=== PATIENT | female | born 1955 | race Asian ===

== ENCOUNTER 2019-04-25 09:19 | Inpatient (IN) | payer MEDICAID ==
[~2019-04-25] VITALS: Ht 152.4 cm; Wt 54.4 kg
[2019-04-25 10:23] LABS: BASOPHILS % 0.8 % (0.0-2.0); EOSINOPHILS % 3.8 % (0.0-5.0); HEMATOCRIT. 32.7 % (36.0-48.0); HEMOGLOBIN. 10.7 g/dL (12.0-16.0); LYMPHOCYTES % 8.6 % (20.0-50.0); MEAN CORPUSCULAR HEMOGLOBIN 31.6 pg (28.0-32.0); MEAN CORPUSCULAR VOLUME 96.2 fL (81.0-99.0); MEAN PLATELET VOLUME 9.1 fl (7.4-10.4); MONOCYTES % 4.4 % (2.0-8.0); NEUTROPHILS % 82.4 % (40.0-76.0); PLATELET 181 x1000/uL (130-400); RED CELL DISTRIBUTION WIDTH 15.6 % (11.6-14.6)
[2019-04-25 10:26] LABS: CHLORIDE 98 mEq/L (98-107)
[2019-04-25 10:27] LABS: PROTHROMBIN TIME 10.5 sec (9.6-11.0)
[2019-04-25] MEDS ORDERED: IPRATROPIUM/ALBUTEROL 0.5-3(2.5)MG/3ML NEB NEB PRN (15:00)
[2019-04-25] MEDS ORDERED: MAGNESIUM/ALUMINUM HYDROXIDE/SIMETHICONE 30ML UDC PO PRN (15:00)
[2019-04-25] MEDS ORDERED: CLONIDINE 0.1MG TABLET PO PRN (15:00)
[2019-04-25] MEDS ORDERED: NITROGLYCERIN 0.4MG TABLET SL SL PRN (15:00)
[2019-04-25] MEDS ORDERED: ENOXAPARIN 40MG/0.4ML SYR SUBCUT SCH (15:00)
[2019-04-25] MEDS ORDERED: ONDANSETRON HCL 4MG/2ML INJ IV PRN (15:00)
[2019-04-25] MEDS ORDERED: GUAIFENESIN 200MG/10ML SUGAR FREE UDC PO PRN (15:00)
[2019-04-25] MEDS ORDERED: DIPHENHYDRAMINE 50MG/ML VIAL IV PRN (15:00)
[2019-04-25] MEDS ORDERED: DOCUSATE SODIUM 100MG CAPSULE PO PRN (15:00)
[2019-04-25] MEDS ORDERED: DEXTROSE 50% WATER 50ML SYRINGE IV PRN (15:00)
[2019-04-25] MEDS ORDERED: LORAZEPAM 2MG/ML CPJ IV ONE (15:30)
[2019-04-25 15:55] LABS: T4 FREE 1.15 ng/dL (0.76-1.46)
[2019-04-25 16:04] LABS: FOLIC ACID (FOLATE) SERUM 9.5 ng/mL (>5.38)
[2019-04-25 18:16] VITALS: BP 148/64
[2019-04-25] MEDS ORDERED: ENOXAPARIN 30MG/0.3ML SYR SUBCUT SCH (20:00)
[2019-04-25] MEDS: SEVELAMER CARBONATE 800 MG TABLET PO SCH (20:25)
[2019-04-25 20:35] VITALS: BP 144/70
[2019-04-25] MEDS: BLOOD SUGAR DIAGNOSTIC STRIP TEST SCH (20:54)
[2019-04-25] MEDS: INSULIN LISPRO 100 UNITS/ML SUBCUT SCH (20:54)
[2019-04-25] MEDS: METOPROLOL TARTRATE 25MG TABLET PO SCH (20:56)
[2019-04-25] MEDS ORDERED: ZOLPIDEM TARTRATE 5MG TABLET PO PRN (21:00)
[2019-04-25] MEDS ORDERED: LEVOFLOXACIN 500MG PREMIX 100 ML IV NR (21:00)
[2019-04-25] MEDS ORDERED: FAMOTIDINE 20MG TABLET PO SCH (21:00)
[2019-04-25 21:43] VITALS: BP 144/70
[2019-04-25] MEDS: ACETAMINOPHEN 325MG TABLET PO PRN (22:56)
[2019-04-26 00:06] LABS: CREATINE KINASE MB FRACTION 3.9 ng/mL (0.5-3.6)
[2019-04-26 00:35] VITALS: BP 125/44
[2019-04-26] MEDS: INSULIN LISPRO 100 UNITS/ML SUBCUT SCH (07:50)
[2019-04-26] MEDS: BLOOD SUGAR DIAGNOSTIC STRIP TEST SCH (08:17)
[2019-04-26 08:20] VITALS: BP 175/73
[2019-04-26] MEDS ORDERED: CLOPIDOGREL 75MG TABLET PO SCH (09:00)
[2019-04-26] MEDS: METOPROLOL TARTRATE 25MG TABLET PO SCH (09:00)
[2019-04-26] MEDS ORDERED: FOLIC ACID/VITAMIN B COMP W-C TABLET PO SCH (09:00)
[2019-04-26] MEDS: ACETAMINOPHEN 325MG TABLET PO PRN (09:20)
[2019-04-26] MEDS: SEVELAMER CARBONATE 800 MG TABLET PO SCH (09:21)
[2019-04-26 10:03] LABS: CREATINE KINASE MB FRACTION 3.1 ng/mL (0.5-3.6); PHOSPHORUS 6.6 mg/dL (2.5-4.9)
[2019-04-26 10:44] LABS: BASOPHILS % 0.9 % (0.0-2.0); EOSINOPHILS % 5.5 % (0.0-5.0); HEMATOCRIT. 29.4 % (36.0-48.0); HEMOGLOBIN. 9.5 g/dL (12.0-16.0); LYMPHOCYTES % 13.2 % (20.0-50.0); MEAN CORPUSCULAR HEMOGLOBIN 31.2 pg (28.0-32.0); MEAN CORPUSCULAR VOLUME 96.8 fL (81.0-99.0); MEAN PLATELET VOLUME 9.6 fl (7.4-10.4); MONOCYTES % 8.7 % (2.0-8.0); NEUTROPHILS % 71.7 % (40.0-76.0); PLATELET 184 x1000/uL (130-400); RED BLOOD CELL COUNT 3.04 mill/uL (4.2-5.4); RED CELL DISTRIBUTION WIDTH 15.4 % (11.6-14.6)
[2019-04-26 11:54] VITALS: BP 144/55
[2019-04-27] MEDS ORDERED: LEVOFLOXACIN 250MG PREMIX 50 ML IV SCH (11:00)
== END 2019-04-26 13:31 | disposition home or self-care (01) | DRG 420 ==
LOC: ER 09:19 → 6WST 12:51 → EDBEDREQTM 12:55 → EDBEDREQ 12:55 → ENRESERV 15:30 → 6WST 19:05
PROVIDERS: ADMIT Internal Medicine; ATTEND Internal Medicine
DX: E11.649 Type 2 diabetes mellitus with hypoglycemia without coma (principal); G92 Toxic encephalopathy; E11.22 Type 2 diabetes mellitus with diabetic chronic kidney disease; E83.51 Hypocalcemia; I12.0 Hypertensive chronic kidney disease with stage 5 chronic kidney disease or end stage renal disease; E83.39 Other disorders of phosphorus metabolism; D63.8 Anemia in other chronic diseases classified elsewhere; E78.00 Pure hypercholesterolemia, unspecified; E87.1 Hypo-osmolality and hyponatremia; T38.3X5A Adverse effect of insulin and oral hypoglycemic [antidiabetic] drugs, initial encounter; N18.6 End stage renal disease; N25.81 Secondary hyperparathyroidism of renal origin; Z79.84 Long term (current) use of oral hypoglycemic drugs; Z82.49 Family history of ischemic heart disease and other diseases of the circulatory system; Z86.73 Personal history of transient ischemic attack (TIA), and cerebral infarction without residual deficits; Z90.710 Acquired absence of both cervix and uterus; Z99.2 Dependence on renal dialysis; Y92.89 Other specified places as the place of occurrence of the external cause
CPT/HCPCS: 36415; 70551; 71045; 80048; 80061; 82550; 82553; 82607; 82746; 82962; 83036; 83540; 83550; 83605; 84100; 84145; 84439; 84443; 84484; 93005; 93970; 99285; J1650; J1956; J2060